=== PATIENT | male | born 1965 | race African-American/Black ===

== ENCOUNTER → 2016-04-24 | Outpatient (CLI) | payer MEDICAID ==
[~2016-04-24] MED LIST: AMLO5TAB2 PO; ASPI-557 PO; ATOR40TA64 PO; GEMF600T3 PO; HYDR-3989 PO; IBUP-1547 PO; MECL-103 PO
--- NOTE | 2016-04-24 15:37 | DI ---
INDICATION: ITS.REASON: R06.00 DYSPNEA PROCEDURE: CHEST 2-VIEWS UPRIGHT (PA \T\ LAT) Encounter: Initial COMPARISON: May 07, 2015 FINDINGS: The lungs are clear without evidence of focal abnormal airspace opacity. There is no pleural effusion or pneumothorax. The heart size, mediastinal contours and pulmonary vascularity are within normal limits. There is no significant skeletal abnormality. IMPRESSION: No acute cardiopulmonary disease. .
== END ==
LOC: IMA 14:49
PROVIDERS: ATTEND Family Medicine
DX: R06.00 Dyspnea, unspecified (principal)

== ENCOUNTER → 2016-05-16 | Outpatient (CLI) | payer MEDICAID ==
[~2016-05-16] VITALS: Ht 177.8 cm; Wt 88.2 kg
== END ==
LOC: RC 12:54
PROVIDERS: ATTEND Family Medicine
DX: R06.00 Dyspnea, unspecified (principal)
CPT/HCPCS: 94060; 94726